=== PATIENT | female | born 1970 | race Caucasian/White ===

== ENCOUNTER 2017-04-06 15:42 | Emergency (ER) | payer MEDICAID ==
[2017-04-06] MEDS ORDERED: FENTANYL 100 MCG/2 ML VIAL ONE ×2 (16:02→21:30)
[2017-04-06 16:07] LABS: BASOPHIL# 0.1 X 10^3uL (0.0-0.1); EOSINOPHILS 4.1 % (0.0-6.0); EOSINOPHILS# 0.4 X 10^3uL (0.0-0.4); HEMATOCRIT 41.2 % (36.0-48.0); HEMOGLOBIN 14.2 g/dL (12.0-16.0); LYMPHOCYTES 43.4 % (20.0-40.0); LYMPHOCYTES# 3.9 X 10^3uL (0.8-3.8); MEAN CELL VOLUME 94.7 fL (80.0-100.0); MEAN CORPUS. HGB CONCENTRATION 34.5 g/dL (32.0-36.0); MEAN CORPUSCULAR HEMOGLOBIN 32.6 pg (29.0-35.0); MEAN PLATELET VOLUME 8.7 fL (7.4-10.4); MONOCYTES# 0.6 X 10^3uL (0.2-1.0); NEUTROPHILS 44.5 % (54.0-75.0); NEUTROPHILS# 3.9 X 10^3uL (2.6-6.7); PLATELET COUNT 259 X 10^3uL (130-440); RED BLOOD COUNT 4.36 X 10^6uL (4.20-6.10); RED CELL DISTRIBUTION WIDTH 11.6 % (11.5-14.5); WHITE BLOOD COUNT 8.9 X 10^3uL (3.9-10.7)
[2017-04-06 16:15] LABS: ALKALINE PHOSPHATASE 55 U/L (38-126); AST 27 U/L (14-36); BILIRUBIN, TOTAL 0.5 mg/dL (0.2-1.3); BLOOD UREA NITROGEN 12 mg/dL (7-17); CALCIUM 8.6 mg/dL (8.4-10.2); CHLORIDE 108 mmol/L (98-107); EST GLOMERULAR FILTRATION RATE > 60 mL/min; GLUCOSE 117 mg/dL (70-100); LIPASE 64 U/L (23-300); POTASSIUM 3.9 mmol/L (3.5-5.1); SODIUM 140 mmol/L (137-145)
[2017-04-06 16:17] LABS: ETHYL ALCOHOL < 10 mg/dL (<10)
--- NOTE | 2017-04-06 16:33 | CT REPORT ---
HISTORY: Trauma. Coarse back injury. Limited range of motion. COMPARISON: None. TECHNIQUE: This examination was performed using automated exposure control, adjustment of mA or kV according to patient size, and/or use of iterative reconstruction technique. Axial thin section images obtained f rom skull base through head of the clavicles. Sagittal and coronal reformat images obtained. FINDINGS: There is no fracture. There is no prevertebral soft tissue swelling. Alignment is normal. There is no lytic or sclerotic lesion. Mineralization is normal. There is no gross soft tissue abnormality. There is no gross degenerative disc disease or facet arthropathy. IMPRESSION: Unremarkable cervical spine CT. Final Electronic Signature: This report was electronically signed by Trung Calderón MD, FACR on 2016 4:31 PM. thiago /
--- NOTE | 2017-04-06 16:36 | CT REPORT ---
HISTORY: Horseback injury with closed head injury. Evaluate for intracranial hemorrhage. TECHNIQUE: Contiguous axial images were acquired from the vertex to the base of the skull without the administra tion of IV contrast. Coronal reformatted images were also performed. Dose reduction technique was utilized. FINDINGS: There is no prior relevant study available for comparison.. Current exam shows no acute intra or extra-axial fluid collections. There is no mass effect or midlin e shift. The ventricles and basal cisterns are normal in size and configuration. There is no intrapar enchymal hemorrhage. The foote-white junction is maintained. Left occipital scalp hematoma is noted with associated subcutaneous emphysema. Bone windows show no a ssociated depressed calvarial fracture. The mastoid air cells are clear. IMPRESSION: 1. No acute intracranial hemorrhage, mass effect, or evidence of acute infarct. 2. Left occipital scalp hematoma with no associated fracture. Final Electronic Signature: This report was electronically signed by Thomas Luna MD on 04/06/2017 4 :34 PM. shumes /
--- NOTE | 2017-04-06 16:42 | CT REPORT ---
HISTORY: Trauma. Thrown from horse COMPARISON: None TECHNIQUE: This examination was performed using automated exposure control, adjustment of mA or kV ac cording to patient size, and/or use of iterative reconstruction technique. Axial and coronal imaging through the abdomen and pelvis with coronal reformatted images. CONTRAST: 100 cc Isovue-370 FINDINGS: CHEST: Lung bases are unremarkable. LIVER: Unremarkable GALLBLADDER/DUCTS: Unremarkable PANCREAS: Unremarkable SPLEEN: Unremarkable ADRENAL GLANDS: Unremarkable GENITOURINARY: Within the left adnexa there is a low-density 2.5 cm structure which could be related to the left ovary and would be best characterized with pelvic ultrasound. No evidence of free fluid s een in the pelvis. Uterus is not enlarged. No evidence of hydronephrosis, renal mass or renal stone identified. BOWEL AND MESENTERY: Diverticulosis changes of the sigmoid colon. No evidence of mesenteric inflammat ory change. APPENDIX: Unremarkable AORTA: Unremarkable FREE AIR/FREE FLUID: None PELVIS/OSSEOUS: No evidence of pelvic fracture. No lytic or blastic lesion seen. Transitional anatomy at the lumbosacral junction. Bilateral L5 pars defects. Grade 1 spondylolisthesis L5 on S1 measuring approximately 1.5 mm. Advance d disc height loss L5-S1. Mild vacuum disc phenomenon L5-S1. Please moderate left L5 foraminal narrow ing. Mild-moderate left L4 foraminal narrowing. No evidence of sacral fracture identified IMPRESSION: Bilateral L5 pars defects and grade 1 spondylolisthesis L5 on S1. Degenerative disc disease L4-5 and L5-S1 with moderate left L5 foraminal narrowing. 2.5 cm low-density lesion in the left adnexa may be related to the left ovary and could be further ev aluated with pelvic ultrasound. No evidence of intra-abdominal/pelvic acute injury identified. No free air free fluid seen. Final Electronic Signature: This report was electronically signed by Gen Stas MD on 04/06/2017 4: 40 PM. alfredito /
[2017-04-06] MEDS ORDERED: LIDOCAINE/EPI 1% 1:100,000 20 ML VIAL ONE (17:08)
[2017-04-06] MEDS ORDERED: MORPHINE SULFATE 4 MG/ML SYR ONE (18:03)
[2017-04-06] MEDS ORDERED: ONDANSETRON HCL 4 MG/2 ML VIAL ONE ×2 (18:03→21:31)
--- NOTE | 2017-04-06 18:04 | ER PHYSICIAN DOCUMENTATION ---
Physician Documentation [facility] ([place], [place]) Name:Gino Jaimes Age:46 yrs Sex:Female :1970 Arrival Date:04/06/2017 Time:15:42 BedTrauma-A Private MD: Gorge Mullins Disposition: 04/06/17 17:10 Transfer ordered to [facility]. Diagnosis is Subarachnoid Hemorrhage. - Reason for transfer: Higher level of care. - Accepting physician is Dr. Macias. - Condition is Serious. - Problem is new. - Symptoms are unchanged. COBRA Form completed? Yes Transfer - Mode of Transportation Ambulance HPI: 04/06 16:31 This 46 yrs old Female presents to ER via EMS with complaints of Fall Injury. leana 16:31 Details of fall: The patient fell from a height, off a horse and fell down a ravine. jm Onset: The symptom(s)/episode began/occurred just prior to arrival. Associated injuries: The patient sustained injury to the head, neck injury. Associated signs and symptoms: Pertinent positives: headache, memory problems, Loss of consciousness: the patient experienced loss of consciousness. Severity of symptoms: in the emergency department the symptoms are unchanged. The patient has not experienced similar symptoms in the past. The patient has not recently seen a physician. Pt was bucked off a horse w/o a helmet and hit her head. Unknown LOC. Pt rolled down a ravine and c/o of head and neck pain. Pt perseverating on scene w laceration to the occipital region. . Historical: - Allergies: No known drug Allergies; - Home Meds: 1. None - PMHx: None; - PSHx: None; - Tetanus: unknown unknown. - Ebola Screening: : Patient negative for fever greater than or equal to 101.5 degrees Fahrenheit, and additional compatible Ebola Virus Disease symptoms. - Social history: Smoking status: unknown if patient ever smoked tobacco. ROS: 16:33 Constitutional: Negative for body aches, fever. jm 16:33 Eyes: Negative for visual disturbance. 16:33 Neck: Positive for injury or acute deformity. 16:33 Cardiovascular: Negative for chest pain. 16:33 Respiratory: Negative for cough, shortness of breath. 16:33 Abdomen/GI: Positive for abdominal pain, Negative for nausea, vomiting. 16:33 MS/extremity: Negative for injury or acute deformity, tenderness. 16:33 Skin: Positive for laceration(s). 16:33 Neuro: Positive for altered mental status, dizziness, headache. Exam: 16:34 Constitutional: The patient appears alert, awake. jm 16:34 Eyes: Periorbital structures: appear normal, Conjunctiva: normal. 16:34 Neck: C-spine: vertebral tenderness, that is mild, Thyroid: appears normal. 16:34 Cardiovascular: Rate: bradycardic, Rhythm: regular. 16:34 Respiratory: Respirations: normal, Breath sounds: are normal. 16:34 Abdomen/GI: Bowel sounds: normal, Palpation: abdomen is soft and non-tender. 16:34 Musculoskeletal/extremity: Pulses: are normal with no appreciated deficits, Sensation intact. 16:34 Neuro: Mentation: confused, perseveration, Memory: immediate memory is impaired, Motor: moves all fours, Sensation: is normal. 16:34 Psych: Behavior/mood is pleasant, cooperative, Affect is calm. Vital Signs: 15:54 BP 114 / 79; Pulse 61; Resp 18; Temp 97.5(O); Pulse Ox 98% on R/A; Weight 72.57 kg; rh Height 5 ft. 6 in. (167.64 cm); Pain 8/10; 16:05 BP 121 / 71; Pulse 47; Resp 16; Pulse Ox 99% on 2 lpm NC; rh 16:13 BP 116 / 62; Pulse 54; Resp 18; Pulse Ox 99% on 2 lpm NC; rh 16:30 BP 120 / 64 (auto/); lp 16:31 Pulse 59 MON; Resp 13; Pulse Ox 99% ; lp 16:41 BP 104 / 64 (auto/); lp 16:41 Pulse 70 MON; Resp 12; Pulse Ox 100% ; lp 16:51 BP 120 / 67 (auto/); lp 16:51 Pulse 59 MON; Resp 19; Pulse Ox 98% ; lp 17:01 BP 126 / 67 (auto/); lp 17:01 Pulse 55 MON; Resp 13; Pulse Ox 94% ; lp 17:10 BP 117 / 66 (auto/); lp 17:11 BP 117 / 66; Pulse 56; Resp 14; Pulse Ox 94% on R/A; rh 17:11 Pulse 55 MON; Resp 14; Pulse Ox 94% ; lp 17:20 BP 110 / 80 (auto/); lp 17:21 Pulse 59 MON; Resp 14; Pulse Ox 93% ; lp 17:30 BP 119 / 74 (auto/); lp 17:31 Pulse 71 MON; Resp 15; Pulse Ox 93% ; lp 17:40 BP 115 / 69; Pulse 64; Resp 16; Pulse Ox 93% on R/A; rh 17:40 BP 115 / 69 (auto/); lp 17:41 Pulse 76 MON; Resp 14; Pulse Ox 92% ; lp 17:50 BP 100 / 76 (auto/); lp 17:51 Pulse 76 MON; Resp 17; Pulse Ox 96% ; lp 15:54 Body Mass Index 25.82 (72.57 kg, 167.64 cm) rh Quin[place] Coma Score: 15:50 Eye Response: spontaneous(4). Verbal Response: confused(4). Motor Response: obeys rh commands(6). Total: 14. Trauma Score (Adult): 16:18 Eye Response: spontaneous(1); Verbal Response: oriented(1); Motor Response: obeys rh commands(2); Systolic BP: > 89 mm Hg(4); Respiratory Rate: 10 to 29 per min(4); Quinwood Score: 15; Trauma Score: 12 17:11 Eye Response: spontaneous(1); Verbal Response: oriented(1); Motor Response: obeys rh commands(2); Systolic BP: > 89 mm Hg(4); Respiratory Rate: 10 to 29 per min(4); [place]wood Score: 15; Trauma Score: 12 17:44 Eye Response: spontaneous(1); Verbal Response: oriented(1); Motor Response: obeys rh commands(2); Systolic BP: > 89 mm Hg(4); Respiratory Rate: 10 to 29 per min(4); Quinwood Score: 15; Trauma Score: 12 Laceration: 17:07 Wound Repair of 4cm ( 1.6in ) subcutaneous laceration to occipital area. Distal jm neuro/vascular/tendon intact. Anesthesia: Wound infiltrated with 10 mls of 2% lidocaine w/ Epi. Wound prep: Wound irrigation by nurse. Skin closed with 7 [place] using Staple gun. Dressed with Open to air. Patient tolerated poorly. MDM: 15:48 Patient medically screened. 17:07 Differential diagnosis: closed head injury, contusion. Data reviewed: vital signs, nurses notes, lab test result(s), radiologic studies, and as a result, I will *Transfer Patient. Counseling: I had a detailed discussion with the patient and/or guardian regarding: the historical points, exam findings, and any diagnostic results supporting the discharge/admit diagnosis, lab results, radiology results, the need to transfer to another facility. Medication response: The patient's symptoms have improved. Response to treatment:. Physician consultation: Dr. Macias was called at 16:45, was contacted at 16:46. ED course: Pt w contrecoup injury on the R parietal frontal area. Pt GCS continues to be normal. Pt will need to be transferred to [facility]. Head wound closed w jamshid.. 04/06 16:10 Order name: CBC AUTO DIF, MDIF/RMOR IF IND; Complete Time: 19:50 EDMS 04/06 16:18 Order name: BASIC METABOLIC PANEL; Complete Time: 19:50 EDMS 04/06 16:18 Order name: ALKALINE PHOSPHATASE; Complete Time: 19:50 EDMA 04/06 16:18 Order name: AST; Complete Time: 19:50 EDMS 04/06 16:18 Order name: BILIRUBIN, TOTAL; Complete Time: 19:50 EDMS 04/06 16:18 Order name: LIPASE; Complete Time: 19:50 EDMA 04/06 16:18 Order name: ETHYL ALCOHOL; Complete Time: 19:50 EDMS 04/06 16:34 Order name: HCG, SERUM; Complete Time: 19:50 EDMS 04/06 16:48 Order name: PROTIME/INR; Complete Time: 19:50 EDMA 04/06 16:36 Order name: CAT SCAN; CERVICAL [id number]; Complete Time: 19:50 EDMA 04/06 16:37 Order name: CAT SCAN; HEAD W/O CON [id number]; Complete Time: 19:50 EDMS 04/06 16:45 Order name: CAT SCAN; ABD/PEL W [id number]; Complete Time: 19:50 EDMS 04/07 20:35 Order name: CHEST; SINGLE [place]IEW [id number] EDMA 04/06 15:49 Order name: Pulse Ox Continuous; Complete Time: 16:03 04/06 16:04 Order name: Cardiac Monitoring - Continuous; Complete Time: 16:04 04/06 16:04 Order name: Oxygen; Complete Time: 16:04 04/06 16:04 Order name: Iv Saline Lock; Complete Time: 16:04 Dispensed Medications: 15:50 Drug: fentaNYL (PF) 100 mcg; Route: IVP; Infused Over: 3 mins; Site: left antecubital; rh 16:13 Follow up: Response: No adverse reaction; Pain is decreased rh 17:58 Drug: Zofran 4 mg; Route: IVP; Infused Over: 2 mins; Site: left antecubital; rh 18:05 Follow up: Response: No adverse reaction rh 18:00 Drug: morphine 4 mg; Route: IVP; Site: left antecubital; rh 18:05 Follow up: Response: Pain is decreased Critical care time excluding procedures: 17:09 Critical care time: Bedside Care: 30 minutes, Consultation: 10 minutes, Family jm Intervention: 10 minutes. Total time: 50 minutes Signatures: Gorge Vora MD MD jm Hofsess, Rachel
--- NOTE | 2017-04-06 18:04 | ER NURSING DOCUMENTATION ---
Nurse's Notes [facility] Name:Gino Jaimes Age:46 yrs Sex:Female :1970 Arrival Date:04/06/2017 Time:15:42 BedTrauma-A Private MD: Diagnosis:Subarachnoid Hemorrhage Presentation: 04/06 15:46 Acuity: ADELSO 2 rh 15:51 Presenting complaint: EMS states: Pt was horseback riding at [employer], Pt was rh galloping with the horse, was throw off down a ravine and rolled about 50 feet. Pt hit her head and was confused on scene. Pt c/o RUQ pain along with occipital and neck pain. Care prior to arrival: IV initiated. gauge and site 20 G L AC. Mechanism of Injury: Horse accident. Trauma event details: Injury occurred in the [facility] Injury occurred in a recreational area. Injury occurred April 06, 2017. 15:51 Method Of Arrival: EMS: 410 rh Triage Assessment: 15:57 General: Appears uncomfortable, Behavior is cooperative, crying. Neuro: Level of rh Consciousness is awake, alert, obeys commands, Oriented to person, place, time, event. Historical: - Allergies: No known drug Allergies; - Home Meds: 1. None - PMHx: None; - PSHx: None; - Tetanus: unknown unknown. - Ebola Screening: : Patient negative for fever greater than or equal to 101.5 degrees Fahrenheit, and additional compatible Ebola Virus Disease symptoms. - Social history: Smoking status: unknown if patient ever smoked tobacco. Screenin:14 Infectious Disease Risk None. Abuse screen: Denies threats or abuse. Denies injuries rh from another. Nutritional screening: No deficits noted. Primary Survey: 15:56 Breathing/Chest: Respiratory pattern: regular. Circulation: Skin color: pink. rh Assessment: 15:50 Reassessment: Pt has laceration to the back of the head, blood noticed around the site, rh however the site isn't actively bleeding. . 15:52 General: Appears uncomfortable, Behavior is cooperative, crying. Pain: Complains of rh pain in occipital area, base of the skull and right upper quadrant. Neuro: Level of Consciousness is awake, alert, obeys commands. EENT: Oral mucosa is dry. Cardiovascular: Capillary refill < 3 seconds Chest pain is denied. Respiratory: Airway is patent Respiratory effort is even, unlabored, Denies shortness of breath. GI: Abdomen is obese, Abdomen is tender to palpation in right upper quadrant Denies nausea. : No deficits noted. Derm: Skin is intact, is healthy with good turgor, Skin is pink, warm & dry. Musculoskeletal: Circulation, motion, and sensation intact. 17:40 Neuro: Level of Consciousness is awake, alert, obeys commands, Oriented to person, rh place, time, event, [employer]ing [employer] are equal bilaterally Speech is normal, Reports headache Denies numbness. Vital Signs: 15:54 BP 114 / 79; Pulse 61; Resp 18; Temp 97.5(O); Pulse Ox 98% on R/A; Weight 72.57 kg; rh Height 5 ft. 6 in. (167.64 cm); Pain 8/10; 16:05 BP 121 / 71; Pulse 47; Resp 16; Pulse Ox 99% on 2 lpm NC; rh 16:13 BP 116 / 62; Pulse 54; Resp 18; Pulse Ox 99% on 2 lpm NC; rh 16:30 BP 120 / 64 (auto/); lp 16:31 Pulse 59 MON; Resp 13; Pulse Ox 99% ; lp 16:41 BP 104 / 64 (auto/); lp 16:41 Pulse 70 MON; Resp 12; Pulse Ox 100% ; lp 16:51 BP 120 / 67 (auto/); lp 16:51 Pulse 59 MON; Resp 19; Pulse Ox 98% ; lp 17:01 BP 126 / 67 (auto/); lp 17:01 Pulse 55 MON; Resp 13; Pulse Ox 94% ; lp 17:10 BP 117 / 66 (auto/); lp 17:11 BP 117 / 66; Pulse 56; Resp 14; Pulse Ox 94% on R/A; rh 17:11 Pulse 55 MON; Resp 14; Pulse Ox 94% ; lp 17:20 BP 110 / 80 (auto/); lp 17:21 Pulse 59 MON; Resp 14; Pulse Ox 93% ; lp 17:30 BP 119 / 74 (auto/); lp 17:31 Pulse 71 MON; Resp 15; Pulse Ox 93% ; lp 17:40 BP 115 / 69; Pulse 64; Resp 16; Pulse Ox 93% on R/A; rh 17:40 BP 115 / 69 (auto/); lp 17:41 Pulse 76 MON; Resp 14; Pulse Ox 92% ; lp 17:50 BP 100 / 76 (auto/); lp 17:51 Pulse 76 MON; Resp 17; Pulse Ox 96% ; lp 15:54 Body Mass Index 25.82 (72.57 kg, 167.64 cm) rh Michel Coma Score: 15:50 Eye Response: spontaneous(4). Verbal Response: confused(4). Motor Response: obeys rh commands(6). Total: 14. Trauma Score (Adult): 16:18 Eye Response: spontaneous(1); Verbal Response: oriented(1); Motor Response: obeys rh commands(2); Systolic BP: > 89 mm Hg(4); Respiratory Rate: 10 to 29 per min(4); Michel Score: 15; Trauma Score: 12 17:11 Eye Response: spontaneous(1); Verbal Response: oriented(1); Motor Response: obeys rh commands(2); Systolic BP: > 89 mm Hg(4); Respiratory Rate: 10 to 29 per min(4); Michel Score: 15; Trauma Score: 12 17:44 Eye Response: spontaneous(1); Verbal Response: oriented(1); Motor Response: obeys rh commands(2); Systolic BP: > 89 mm Hg(4); Respiratory Rate: 10 to 29 per min(4); [place] Score: 15; Trauma Score: 12 ED Course: 15:43 Patient arrived in ED. cj 15:44 Rubi Brasher is Primary Nurse. rh 15:46 Triage completed. rh 15:48 Gorge Vora MD is Attending Physician. jm 15:49 Foam cervical collar applied and checked by physician. rh 15:50 Port Xray Completed. hz 15:56 Maintain field IV. Site clean & dry. Gauge & site: 20 G in the L AC. rh 15:56 Valuables Remains with patient Patient has correct armband on for positive rh identification. Placed in gown. Bed in low position. Call light in reach. Side rails up X 1. 16:05 Oxygen Oxygen administration via nasal cannula @ 2L/min. rh 16:[address] ms 16:26 Patient moved back from CT. ms 17:05 Wound care to laceration located on occipital area was cleaned with soap and water, rh Irrigation Normal Saline Patient tolerated well. 17:10 Assist Provider Assist provider with laceration repair on occipital area that was 2.5 rh cm. or less using jamshid. Set up tray. Performed by Gorge Vora MD Patient tolerated well. Administered Medications: 15:50 Drug: fentaNYL (PF) 100 mcg; Route: IVP; Infused Over: 3 mins; Site: left antecubital; rh 16:13 Follow up: Response: No adverse reaction; Pain is decreased rh 17:58 Drug: Zofran 4 mg; Route: IVP; Infused Over: 2 mins; Site: left antecubital; rh 18:05 Follow up: Response: No adverse reaction rh 18:00 Drug: morphine 4 mg; Route: IVP; Site: left antecubital; rh 18:05 Follow up: Response: Pain is decreased rh Intake: 18:00 PO: 0ml; Total: 0ml. rh Output: 18:00 Urine: 200ml (Voided); Total: 200ml. rh Outcome: 17:10 ER care complete, transfer ordered by MD. dueñas 17:37 [facility] Time: April 06, 2017 at 17:10 Patient's face sheet was faxed to accepting facility. Face Sheet included patient's name, address, age, gender, contact information and insurance information. Patient will be transported by: [facility] [place] [facility] ground. Report called to: ALEX Ratliff RN AT [facility] ED Nurse and Physician Charting and Notes were sent to Accepting Facility. All tests and/or procedures with results, if applicable, were sent to accepting facility. 17:37 Condition: stable 17:37 Instructed on need for transfer 18:04 Patient left the ED. rh Signatures: Danya Haynes, Gorge Godoy RN, lp, MD MD jm Strickland, Araceli Brasher, Rubi Waqar, Linda Paris Smith
--- NOTE | 2017-04-07 19:19 | RADIOLOGY REPORT ---
A limited single portable view of the chest demonstrates the heart and vessels to be unremarkable. The lung posada are clear. No infiltrate, fluid or pneumothorax is seen. IMPRESSION: Unremarkable limited single portable view of the chest. MTDD
== END 2017-04-06 18:04 | disposition short-term general hospital (02) ==
LOC: ER 15:42
DX: S06.6X1A Traumatic subarachnoid hemorrhage with loss of consciousness of 30 minutes or less, initial encounter (principal); S01.01XA Laceration without foreign body of scalp, initial encounter; R40.2412 Glasgow coma scale score 13-15, at arrival to emergency department; M54.2 Cervicalgia; R42 Dizziness and giddiness; R41.82 Altered mental status, unspecified; R10.9 Unspecified abdominal pain; V80.010A Animal-rider injured by fall from or being thrown from horse in noncollision accident, initial encounter; Y92.838 Other recreation area as the place of occurrence of the external cause; Y93.52 Activity, horseback riding; Z99.89 Dependence on other enabling machines and devices; Z74.3 Need for continuous supervision
CPT/HCPCS: 12032; 70450; 71010; 72125; 74177; 80048; 80320; 82247; 83690; 84075; 84450; 84703; 85025; 85610; 96374; 96375; 99285; A0425; A0427; J2270; J2405; J3010